=== PATIENT | male | born 1945 | race Caucasian/White ===

== ENCOUNTER → 2018-06-29 | Outpatient (REF) ==
[~2018-06-29] MED LIST: ASPIRIN E.C. 8181 MG PO; ENALAPRIL MALEA PO; LOVASTATIN10 MG PO; MOBIC15 MG PO; MULTIPLE VITAMI1 CAP PO
== END ==
LOC: ZLAB.WCH 09:29
DX: Z01.89 Encounter for other specified special examinations (principal)